=== PATIENT | female | born 2000 | race Caucasian/White ===

== ENCOUNTER 2020-09-28 01:14 | Emergency (ER) | payer BC, OTHER ==
[~2020-09-28] VITALS: Ht 160 cm; Wt 80.5 kg
--- NOTE | 2020-09-28 01:59 | NUR ---
PT HERE FOR N/V AND BODY ACHES X 2 DAYS. PT HAD SIMILAR SYMPTOMS 1 YEAR AGO PRIOR TO GALL BLADDER SURGERY
--- NOTE | 2020-09-28 02:16 | NUR ---
PT WAITING TO SEE MD IN NAD AT THIS TIME
[2020-09-28] MEDS ORDERED: ONDANSETRON 2MG/ML, 2ML ONE (02:44)
[2020-09-28] MEDS ORDERED: ONDANSETRON 2MG/ML, 2ML IVPush ONE (03:00)
[2020-09-28] MEDS ORDERED: SODIUM CHLORIDE 0.9% 1,000ML IVBOLUS ONE (03:00)
[2020-09-28 03:04] LABS: BASOPHILS % (AUTO) 1 % (0-1); EOSINOPHILS % (AUTO) 0 % (1-7); LYMPHOCYTES % (AUTO) 11 % (22-44); MEAN CORPUSCULAR HEMOGLOBIN 24.9 pg (27.0-34.8); MEAN CORPUSCULAR HGB CONC 32.5 g/dL (32.4-35.8); MEAN PLATELET VOLUME 8.1 fL (7.4-10.4); MONOCYTES % (AUTO) 10 % (2-9); NEUTROPHILS % (AUTO) 78 % (42-75); PLATELET COUNT 224 x10^3/uL (130-400); RED BLOOD COUNT 4.84 x10^6/uL (3.82-5.3); RED CELL DISTRIBUTION WIDTH 15.6 % (9.6-15.2)
[2020-09-28 03:07] LABS: MD NO
[2020-09-28 03:12] LABS: ALANINE AMINOTRANSFERASE 14 U/L (12-78); ALBUMIN 3.6 g/dL (3.4-5.0); ANION GAP 9 mmol/L (5-15); CALCIUM 8.7 mg/dL (8.5-10.1); CHLORIDE 110 mmol/L (98-107)
[2020-09-28 03:30] LABS: ALKALINE PHOSPHATASE 58 U/L (45-117); BILIRUBIN,TOTAL 0.3 mg/dL (0.2-1.0); TOTAL PROTEIN 7.3 g/dL (6.4-8.2)
--- NOTE | 2020-09-28 04:03 | NUR ---
IN TO SEE PT, NOTIFIED PATIENT THAT SH IS , THEN PT TO IMMANUEL WICK
[2020-09-28] MEDS ORDERED: ACETAMINOPHEN 325 MG TABLET ONE (05:23)
[2020-09-28] MEDS ORDERED: ACETAMINOPHEN 325 MG TABLET PO ONE (05:30)
[2020-09-28 05:36] VITALS: BP 122/74
--- NOTE | 2020-09-28 05:37 | NUR ---
Patient/Caregiver given discharge instructions and they have confirmed that they understand the instructions. Patient ambulatory with steady gait.
== END 2020-09-28 05:39 | disposition home or self-care (01) ==
LOC: ED 03:18
DX: O02.1 Missed abortion (principal); O26.891 Other specified pregnancy related conditions, first trimester; R11.2 Nausea with vomiting, unspecified; Z90.49 Acquired absence of other specified parts of digestive tract; Z87.891 Personal history of nicotine dependence; Z3A.08 8 weeks gestation of pregnancy
CPT/HCPCS: 36415; 76801; 80053; 83690; 84702; 85025; 96374; 99284; J2405; J7030; 84703

== ENCOUNTER 2020-09-29 09:42 | Emergency (ER) | payer OTHER ==
[~2020-09-29] VITALS: Ht 162.6 cm; Wt 80.2 kg
[2020-09-29] MEDS ORDERED: HYDROmorphone 1 MG/ML, 1ML INJ IVPush PRN (10:30)
[2020-09-29] MEDS ORDERED: SODIUM CHLORIDE 0.9% 1,000ML IVBOLUS ONE (10:30)
[2020-09-29] MEDS ORDERED: ONDANSETRON 2MG/ML, 2ML IVPush ONE (10:30)
[2020-09-29] MEDS ORDERED: SODIUM CHLORIDE FLUSH 10ML SYR IVF ONE (10:30)
[2020-09-29] MEDS ORDERED: ONDANSETRON 2MG/ML, 2ML ONE (10:58)
[2020-09-29] MEDS ORDERED: HYDROmorphone 1 MG/ML, 1ML INJ ONE (10:58)
--- NOTE | 2020-09-29 11:08 | NUR ---
PT C/O LOWER CHEST AND ABD PAIN ACCOMPANIED BY N/V. PT WAS DX WITH A MISCARRIAGE YESTERDAY. PT STATES THE PAIN IS STRONG. PT DENIES ANY VAGINAL BLEEDING. PER PT, YESTERDAY SHE WAS DIAGNOSED BEING 8 WEEKS PREGANANT, BUT NO HEART TONES DETECTED.
[2020-09-29 11:27] LABS: BASOPHILS % (AUTO) 1 % (0-1); EOSINOPHILS % (AUTO) 0 % (1-7); LYMPHOCYTES % (AUTO) 18 % (22-44); MEAN CORPUSCULAR HGB CONC 32.8 g/dL (32.4-35.8); MEAN PLATELET VOLUME 8.8 fL (7.4-10.4); MONOCYTES % (AUTO) 8 % (2-9); NEUTROPHILS % (AUTO) 73 % (42-75); PLATELET COUNT 229 x10^3/uL (130-400); RED BLOOD COUNT 5.26 x10^6/uL (3.82-5.3); RED CELL DISTRIBUTION WIDTH 16.1 % (9.6-15.2)
[2020-09-29 11:31] LABS: MD NO
[2020-09-29 11:41] LABS: ANION GAP 4 mmol/L (5-15); CALCIUM 8.8 mg/dL (8.5-10.1); CHLORIDE 111 mmol/L (98-107)
--- NOTE | 2020-09-29 11:41 | NUR ---
PT OFF THE FLOOR TO ULTRASOUND
[2020-09-29 11:58] LABS: CREATININE 0.62 mg/dL (0.55-1.02)
--- NOTE | 2020-09-29 12:00 | NUR ---
Report recieved from Court MORALES. pt back from imaging.
[2020-09-29] MEDS ORDERED: MAALOX/HYOSCYAMINE/LIDOCAINE 45 ML BTL ONE (12:22)
--- NOTE | 2020-09-29 12:31 | NUR ---
JUAN CARLOS OCAMPO AT BEDSIDE FOR EVALUAITON
[2020-09-29 12:46] VITALS: BP 110/64
[2020-09-29 12:59] LABS: MICROSCOPIC INDICATED
[2020-09-29] MEDS ORDERED: MAALOX/HYOSCYAMINE/LIDOCAINE 45 ML BTL PO ONE (13:00)
--- NOTE | 2020-09-29 13:40 | NUR ---
PT STATES UNABLE TO FINISH GI COCTAIL MEDICATION D/T NAUSEA. ERMD AWARE
--- NOTE | 2020-09-29 14:37 | NUR ---
JUAN CARLOS OCAMPO AT BEDSIDE TO DISCUSS POC.
== END 2020-09-29 14:59 | disposition home or self-care (01) ==
LOC: ED 10:24
DX: O20.0 Threatened abortion (principal); R10.2 Pelvic and perineal pain; R11.2 Nausea with vomiting, unspecified; R51.9 Headache, unspecified; Z90.49 Acquired absence of other specified parts of digestive tract; Z3A.01 Less than 8 weeks gestation of pregnancy
CPT/HCPCS: 36415; 76801; 80048; 81001; 82040; 83690; 84702; 85025; 87086; 96361; 96374; 96375; 99284; J1170; J2405; J7030

== ENCOUNTER 2020-10-02 05:06 | Emergency (ER) | payer BC, OTHER ==
[~2020-10-02] VITALS: Ht 162.6 cm; Wt 79.0 kg
[2020-10-02 05:09] VITALS: BP 111/69
[2020-10-02] MEDS ORDERED: SODIUM CHLORIDE 0.9% 1,000ML IVBOLUS ONE (05:30)
[2020-10-02] MEDS ORDERED: ONDANSETRON 2MG/ML, 2ML IVPush ONE (05:30)
[2020-10-02] MEDS ORDERED: SODIUM CHLORIDE FLUSH 10ML SYR IVF ONE (05:30)
[2020-10-02] MEDS ORDERED: ONDANSETRON 2MG/ML, 2ML ONE (05:36)
--- NOTE | 2020-10-02 05:46 | NUR ---
cc of abd, back, and leg pain 3/10 from the last 3 days that has worsened. pt was seen here 2 other times and told she is having a miscarriage.
[2020-10-02 05:47] LABS: BASOPHILS % (AUTO) 1 % (0-1); EOSINOPHILS % (AUTO) 0 % (1-7); LYMPHOCYTES % (AUTO) 22 % (22-44); MEAN CORPUSCULAR HEMOGLOBIN 24.5 pg (27.0-34.8); MEAN CORPUSCULAR HGB CONC 32.2 g/dL (32.4-35.8); MEAN PLATELET VOLUME 8.2 fL (7.4-10.4); MONOCYTES % (AUTO) 8 % (2-9); NEUTROPHILS % (AUTO) 69 % (42-75); PLATELET COUNT 196 x10^3/uL (130-400); RED BLOOD COUNT 5.15 x10^6/uL (3.82-5.3); RED CELL DISTRIBUTION WIDTH 15.9 % (9.6-15.2)
[2020-10-02 05:53] LABS: MD NO
[2020-10-02 05:54] LABS: ALBUMIN 3.7 g/dL (3.4-5.0); ANION GAP 7 mmol/L (5-15); CALCIUM 8.9 mg/dL (8.5-10.1); CHLORIDE 112 mmol/L (98-107); CREATININE 0.66 mg/dL (0.55-1.02)
[2020-10-02] MEDS ORDERED: ACETAMINOPHEN 500 MG TABLET ONE (06:33)
--- NOTE | 2020-10-02 06:40 | NUR ---
pt requesting something for pain, erp aware and ordered tylenol. pt states tylenol does not work for her and refused medication. pt states she got prescription for norco yesterday and would like that. erp aware, no new orders at this time and will re-evaluate after ultrasound. pt aware of poc.
--- NOTE | 2020-10-02 06:45 | NUR ---
pt to ultrasound
--- NOTE | 2020-10-02 06:55 | NUR ---
report given to zandra lutz
[2020-10-02] MEDS ORDERED: ACETAMINOPHEN 500 MG TABLET PO ONE (07:00)
== END 2020-10-02 08:11 | disposition home or self-care (01) ==
LOC: ED 05:51
DX: O26.891 Other specified pregnancy related conditions, first trimester (principal); O99.331 Smoking (tobacco) complicating pregnancy, first trimester; R10.2 Pelvic and perineal pain; R11.2 Nausea with vomiting, unspecified; M54.5 Low back pain; F17.200 Nicotine dependence, unspecified, uncomplicated; Z3A.01 Less than 8 weeks gestation of pregnancy
CPT/HCPCS: 36415; 76801; 80048; 82040; 84702; 85025; 86901; 96361; 96374; 99284; J2405; J7030

== ENCOUNTER 2020-10-05 19:08 | Emergency (ER) | payer BC ==
[~2020-10-05] VITALS: Ht 162.6 cm; Wt 78.1 kg
--- NOTE | 2020-10-05 19:26 | NUR ---
PT HERE FOR C/O N/V X1 WEEK AND UNABLE TO EAT FOR THE LAST 5 DAYS. PT REPORTS SHE IS ABOUT 5 WEEKS . HX DAILY MARIJUANA USE, STATES SHE HAS NOT SMOKED X1 WEEK.
[2020-10-05] MEDS ORDERED: PROMETHAZINE 25 MG/ML, 1ML IM ONE (20:00)
[2020-10-05] MEDS ORDERED: PROMETHAZINE 25 MG/ML, 1ML ONE (20:05)
--- NOTE | 2020-10-05 20:14 | NUR ---
MEDICATED PER MAR. URINE SAMPLE COLLECTED. ALL NEEDS MET AT THIS TIME.
[2020-10-05 20:28] LABS: BASOPHILS % (AUTO) 0 % (0-1); EOSINOPHILS % (AUTO) 0 % (1-7); LYMPHOCYTES % (AUTO) 24 % (22-44); MD NO; MEAN CORPUSCULAR HEMOGLOBIN 24.9 pg (27.0-34.8); MEAN CORPUSCULAR HGB CONC 33.2 g/dL (32.4-35.8); MEAN PLATELET VOLUME 8.7 fL (7.4-10.4); MONOCYTES % (AUTO) 8 % (2-9); NEUTROPHILS % (AUTO) 68 % (42-75); PLATELET COUNT 217 x10^3/uL (130-400); RED BLOOD COUNT 4.94 x10^6/uL (3.82-5.3); RED CELL DISTRIBUTION WIDTH 15.5 % (9.6-15.2)
[2020-10-05 20:32] LABS: MICROSCOPIC INDICATED
[2020-10-05 20:41] LABS: ALANINE AMINOTRANSFERASE 14 U/L (12-78); ALBUMIN 3.7 g/dL (3.4-5.0); ANION GAP 8 mmol/L (5-15); CALCIUM 8.7 mg/dL (8.5-10.1); CHLORIDE 110 mmol/L (98-107); CREATININE 0.67 mg/dL (0.55-1.02)
[2020-10-05 21:02] LABS: ALKALINE PHOSPHATASE 53 U/L (45-117); BILIRUBIN,TOTAL 0.6 mg/dL (0.2-1.0); TOTAL PROTEIN 7.1 g/dL (6.4-8.2)
--- NOTE | 2020-10-05 22:10 | NUR ---
US AT BEDSIDE.
--- NOTE | 2020-10-05 23:05 | NUR ---
REPORT RECIEVED FROM ANDREW BRENNAN
[2020-10-05] MEDS ORDERED: METOCLOPRAMIDE 5 MG/ML, 2ML ONE (23:28)
[2020-10-05] MEDS ORDERED: METOCLOPRAMIDE 5 MG/ML, 2ML IVPush ONE (23:30)
[2020-10-05] MEDS ORDERED: SODIUM CHLORIDE 0.9% 1,000ML IVBOLUS ONE (23:30)
--- NOTE | 2020-10-06 00:57 | NUR ---
PT GIVEN CRACKERS, WATER, AND SPRITE. PT ABLE TO KEEP IT DOWN AND STATES NO NAUSEA AT THIS TIME
[2020-10-06 01:40] VITALS: BP 116/52
[2020-10-06] MEDS ORDERED: ONDA4TAB7 PO (08:19)
== END 2020-10-06 01:55 | disposition home or self-care (01) ==
LOC: ED 19:23
DX: O21.0 Mild hyperemesis gravidarum (principal); F17.210 Nicotine dependence, cigarettes, uncomplicated; Z90.49 Acquired absence of other specified parts of digestive tract; Z3A.01 Less than 8 weeks gestation of pregnancy
CPT/HCPCS: 36415; 76801; 80053; 81001; 83690; 84702; 85025; 87086; 96372; 96374; 99285; J2550; J2765; J7030

== ENCOUNTER 2020-10-06 06:05 | Inpatient (IN) | payer BC ==
[~2020-10-06] VITALS: Ht 160 cm; Wt 82.1 kg
--- NOTE | 2020-10-06 06:55 | NUR ---
REPORT FROM [place], ASSUME CARE OF PT AT THIS TIME.
[2020-10-06] MEDS ORDERED: ONDANSETRON ODT 4 MG ONE (06:58)
[2020-10-06] MEDS ORDERED: ONDANSETRON ODT 4 MG PO ONE (07:00)
--- NOTE | 2020-10-06 07:02 | NUR ---
WHEN ENTERING ROOM, PT SLEEPING SOUNDLY. PT AWOKE AND PROVIDED ZOFRAN ODT PER ERP ORDER. PT INITIALLY RESISTANT TO TAKING ZOFRAN STATING "I WILL THROW UP", "I NEED WATER", "I HAVE NOTHING IN MY STOMACH", ETC. MEDICATION TEACHING COMPLETED WITH PT STATING "I KNOW, I'VE BEEN TAKING IT FOR DAYS". THEN THIS RN IS LEAVING ROOM, PT STATES "I'LL TAKE IT BUT YOU NEED TO GIVE ME WATER". PT GIVEN ZOFRAN, PLACED UNDER THE TONGUE. SMALL GLASS OF WATER PROVIDED FOR SIPS TO RINSE AFTERTASTE. LAB IN TO DRAW.
--- NOTE | 2020-10-06 07:03 | NUR ---
REPORT GIVEN TO MONICA MORALES
[2020-10-06 07:34] LABS: ALBUMIN 3.4 g/dL (3.4-5.0); ANION GAP 5 mmol/L (5-15); CALCIUM 8.4 mg/dL (8.5-10.1); CHLORIDE 114 mmol/L (98-107); CREATININE 0.58 mg/dL (0.55-1.02)
[2020-10-06] MEDS ORDERED: SODIUM CHLORIDE 0.9% 1,000ML IVBOLUS ONE (08:00)
[2020-10-06] MEDS ORDERED: POTASSIUM CHLORIDE 40 MEQ in SODIUM CHLORIDE 0.9% 500 ML IV ONE (08:00)
--- NOTE | 2020-10-06 08:14 | NUR ---
IV PLACED, NS BOLUS AND POTASSIUM INFUSING. CALL LIGHT WITHIN REACH.
[2020-10-06] MEDS ORDERED: ONDA4TAB7 PO (08:19)
--- NOTE | 2020-10-06 08:25 | NUR ---
[facility] IN TO SEE PT
--- NOTE | 2020-10-06 09:13 | NUR ---
REPORT TO EMERITA STODDARD READY FOR TRANSPORT TO FLOOR.
[2020-10-06] MEDS ORDERED: MORPHINE SULFATE 4 MG/ML, 1ML IVPush PRN (10:00)
[2020-10-06 10:02] VITALS: BP 97/59
[2020-10-06] MEDS ORDERED: POTASSIUM CHLORIDE 40 MEQ in SODIUM CHLORIDE 0.9% 1,000 ML IV SCH (10:30)
[2020-10-06] MEDS: ENOXAPARIN 40 MG/0.4 ML SQ SCH (11:00)
[2020-10-06] MEDS: CEFTRIAXONE PMX 1GM/50ML 50 ML IV SCH (11:06)
[2020-10-06] MEDS: METOCLOPRAMIDE 5 MG/ML, 2ML IVPush SCH ×3 (11:15→22:30)
[2020-10-06 11:23] VITALS: BP 97/59
[2020-10-06] MEDS: THIAMINE 100 MG in SODIUM CHLORIDE 0.9% 50 ML IV SCH (11:57)
[2020-10-06] MEDS: POTASSIUM CHLORIDE 40 MEQ in SODIUM CHLORIDE 0.9% 1,000 ML IV SCH ×2 (12:40→21:22)
[2020-10-06 14:02] VITALS: BP 95/49
[2020-10-06] MEDS ORDERED: MAGNESIUM SULFATE PMX 2GM/50ML 50 ML IV ONE (18:00)
[2020-10-06 18:15] VITALS: BP 117/64
[2020-10-06] MEDS: ONDANSETRON 2MG/ML, 2ML IVPush PRN (19:31)
[2020-10-07 00:52] VITALS: BP 107/67
[2020-10-07] MEDS: METOCLOPRAMIDE 5 MG/ML, 2ML IVPush SCH ×4 (04:39→22:07)
[2020-10-07] MEDS: POTASSIUM CHLORIDE 40 MEQ in SODIUM CHLORIDE 0.9% 1,000 ML IV SCH ×2 (04:39→11:40)
[2020-10-07 06:07] LABS: BASOPHILS % (AUTO) 0 % (0-1); EOSINOPHILS % (AUTO) 0 % (1-7); LYMPHOCYTES % (AUTO) 26 % (22-44); MEAN CORPUSCULAR HEMOGLOBIN 25.1 pg (27.0-34.8); MEAN CORPUSCULAR HGB CONC 32.8 g/dL (32.4-35.8); MEAN PLATELET VOLUME 9.3 fL (7.4-10.4); MONOCYTES % (AUTO) 6 % (2-9); NEUTROPHILS % (AUTO) 68 % (42-75); PLATELET COUNT 186 x10^3/uL (130-400); RED BLOOD COUNT 4.53 x10^6/uL (3.82-5.3); RED CELL DISTRIBUTION WIDTH 15.7 % (9.6-15.2)
[2020-10-07 06:18] LABS: ALBUMIN 2.9 g/dL (3.4-5.0); ANION GAP 9 mmol/L (5-15); CALCIUM 7.9 mg/dL (8.5-10.1); CHLORIDE 114 mmol/L (98-107)
[2020-10-07 06:19] LABS: MD NO
[2020-10-07 06:22] LABS: ALANINE AMINOTRANSFERASE 10 U/L (12-78); ALKALINE PHOSPHATASE 45 U/L (45-117); BILIRUBIN,TOTAL 0.7 mg/dL (0.2-1.0); CREATININE 0.44 mg/dL (0.55-1.02); TOTAL PROTEIN 5.8 g/dL (6.4-8.2)
[2020-10-07 08:21] VITALS: BP 104/65
[2020-10-07] MEDS: THIAMINE 100 MG in SODIUM CHLORIDE 0.9% 50 ML IV SCH (10:45)
[2020-10-07] MEDS: ENOXAPARIN 40 MG/0.4 ML SQ SCH (11:00)
[2020-10-07] MEDS: CEFTRIAXONE PMX 1GM/50ML 50 ML IV SCH (11:40)
[2020-10-07 12:53] VITALS: BP 110/72
[2020-10-07] MEDS: ONDANSETRON 2MG/ML, 2ML IVPush PRN (15:24)
[2020-10-07] MEDS: POTASSIUM ACID PHOSPHATE 500 MG TABLET.SOL PO SCH ×2 (15:24→22:07)
[2020-10-07 19:15] VITALS: BP 127/83
[2020-10-07] MEDS ORDERED: ACETAMINOPHEN 325 MG TABLET PO PRN ×2 (20:30→21:30)
[2020-10-08 03:50] VITALS: BP 107/68
[2020-10-08] MEDS: METOCLOPRAMIDE 5 MG/ML, 2ML IVPush SCH ×2 (04:08→11:40)
[2020-10-08] MEDS: POTASSIUM ACID PHOSPHATE 500 MG TABLET.SOL PO SCH ×2 (04:08→08:18)
[2020-10-08 05:59] LABS: BASOPHILS % (AUTO) 1 % (0-1); EOSINOPHILS % (AUTO) 0 % (1-7); LYMPHOCYTES % (AUTO) 17 % (22-44); MEAN CORPUSCULAR HEMOGLOBIN 24.9 pg (27.0-34.8); MEAN CORPUSCULAR HGB CONC 32.5 g/dL (32.4-35.8); MEAN PLATELET VOLUME 8.8 fL (7.4-10.4); MONOCYTES % (AUTO) 6 % (2-9); NEUTROPHILS % (AUTO) 76 % (42-75); PLATELET COUNT 224 x10^3/uL (130-400); RED BLOOD COUNT 5.18 x10^6/uL (3.82-5.3); RED CELL DISTRIBUTION WIDTH 15.5 % (9.6-15.2)
[2020-10-08 06:01] LABS: MD NO
[2020-10-08 06:08] LABS: ALBUMIN 3.4 g/dL (3.4-5.0); ANION GAP 9 mmol/L (5-15); CALCIUM 8.9 mg/dL (8.5-10.1); CHLORIDE 111 mmol/L (98-107)
[2020-10-08 06:11] LABS: ALANINE AMINOTRANSFERASE 16 U/L (12-78); ALKALINE PHOSPHATASE 52 U/L (45-117); BILIRUBIN,TOTAL 0.6 mg/dL (0.2-1.0); CREATININE 0.54 mg/dL (0.55-1.02); TOTAL PROTEIN 6.7 g/dL (6.4-8.2)
[2020-10-08] MEDS: ONDANSETRON 2MG/ML, 2ML IVPush PRN (06:34)
[2020-10-08 07:15] VITALS: BP 101/67
[2020-10-08] MEDS: CEFTRIAXONE PMX 1GM/50ML 50 ML IV SCH (10:54)
[2020-10-08] MEDS: ENOXAPARIN 40 MG/0.4 ML SQ SCH (11:00)
[2020-10-08] MEDS: THIAMINE 100 MG in SODIUM CHLORIDE 0.9% 50 ML IV SCH (11:40)
[2020-10-08 15:07] VITALS: BP 111/63
== END 2020-10-08 15:40 | disposition home or self-care (01) | DRG 832 ==
LOC: ED 07:52 → SUATTDRO 08:21 → EDIP 08:52 → 3N 09:25 → DCLOUNGE 10-08 15:32
PROVIDERS: ADMIT Family Medicine; ATTEND Family Medicine
DX: O21.1 Hyperemesis gravidarum with metabolic disturbance (principal); K56.7 Ileus, unspecified; O99.321 Drug use complicating pregnancy, first trimester; E83.42 Hypomagnesemia; E83.51 Hypocalcemia; E86.0 Dehydration; E88.09 Other disorders of plasma-protein metabolism, not elsewhere classified; O99.281 Endocrine, nutritional and metabolic diseases complicating pregnancy, first trimester; F12.90 Cannabis use, unspecified, uncomplicated; F17.210 Nicotine dependence, cigarettes, uncomplicated; O99.331 Smoking (tobacco) complicating pregnancy, first trimester; O26.91 Pregnancy related conditions, unspecified, first trimester; Z90.49 Acquired absence of other specified parts of digestive tract; Z3A.01 Less than 8 weeks gestation of pregnancy
CPT/HCPCS: 36415; 80048; 80053; 82040; 83690; 83735; 84100; 84132; 85025; G0378; J0696; J2405; J3411; J3480; Q0162; J2270; J2765; J3475; J7030; J7040

== ENCOUNTER 2020-12-27 07:27 | Emergency (ER) | payer BC ==
[~2020-12-27] VITALS: Ht 162.6 cm; Wt 74.4 kg
[~2020-12-27 07:27] MED LIST: ONDA4TAB7 PO
--- NOTE | 2020-12-27 07:52 | NUR ---
first contact with pt. pt c/o all quadrants abd pain with n/v since 10 pm yesterday. pt denies any other symptoms. lbm 12/26. last meal 12/26 8pm per pt. pt's aox4. resps even and unlabored. pt's mother at bedside. pt's aox4. bp/spo2 monitors in place. urine cup in room. pt stated "i can't pee now."
[2020-12-27 08:28] LABS: BASOPHILS % (AUTO) 0 % (0-1); EOSINOPHILS % (AUTO) 0 % (1-7); LYMPHOCYTES % (AUTO) 7 % (22-44); MD NO; MEAN CORPUSCULAR HGB CONC 31.8 g/dL (32.4-35.8); MEAN PLATELET VOLUME 8.4 fL (7.4-10.4); MONOCYTES % (AUTO) 4 % (2-9); NEUTROPHILS % (AUTO) 88 % (42-75); PLATELET COUNT 298 x10^3/uL (130-400); RED BLOOD COUNT 4.67 x10^6/uL (3.82-5.3); RED CELL DISTRIBUTION WIDTH 14.9 % (9.6-15.2)
[2020-12-27] MEDS ORDERED: ONDANSETRON 2MG/ML, 2ML IVPush ONE (08:30)
[2020-12-27] MEDS ORDERED: SODIUM CHLORIDE 0.9% 1,000ML IVBOLUS ONE (08:30)
[2020-12-27] MEDS ORDERED: ONDANSETRON 2MG/ML, 2ML ONE (08:34)
[2020-12-27 08:39] LABS: ALANINE AMINOTRANSFERASE 11 U/L (12-78); ALBUMIN 3.9 g/dL (3.4-5.0); ANION GAP 7 mmol/L (5-15); CALCIUM 8.9 mg/dL (8.5-10.1); CHLORIDE 112 mmol/L (98-107)
[2020-12-27 08:42] LABS: ALKALINE PHOSPHATASE 65 U/L (45-117); BILIRUBIN,TOTAL 0.4 mg/dL (0.2-1.0); TOTAL PROTEIN 7.8 g/dL (6.4-8.2)
[2020-12-27 08:45] LABS: HCG UR SG 1.017 (1.003-1.030); MICROSCOPIC NOT IND
--- NOTE | 2020-12-27 08:51 | NUR ---
pt provided urine sample at this time. ua sent.
--- NOTE | 2020-12-27 09:29 | NUR ---
pt resting in [facility]. pt's aox4. resps even and unlabored. ns still infusing at this time.
[2020-12-27 10:09] VITALS: BP 93/54
--- NOTE | 2020-12-27 10:10 | NUR ---
Patient given discharge instructions and they have confirmed that they understand the instructions. Patient ambulatory with steady gait.
== END 2020-12-27 10:12 | disposition home or self-care (01) ==
LOC: ED 10:00
DX: R11.2 Nausea with vomiting, unspecified (principal); R10.11 Right upper quadrant pain
CPT/HCPCS: 36415; 80053; 81003; 81025; 83690; 85025; 96361; 96374; 99285; J2405; J7030

== ENCOUNTER 2020-12-28 03:04 | Emergency (ER) | payer BC ==
[~2020-12-28] VITALS: Ht 160 cm; Wt 76.6 kg
--- NOTE | 2020-12-28 03:20 | NUR ---
ERP AT BEDSIDE
[2020-12-28] MEDS ORDERED: PROCHLORPERAZINE 5 MG/ML, 2ML ONE (03:27)
[2020-12-28] MEDS ORDERED: DIPHENHYDRAMINE 50 MG/ML, 1ML ONE (03:27)
[2020-12-28] MEDS ORDERED: PROCHLORPERAZINE 5 MG/ML, 2ML IVPush ONE (03:30)
[2020-12-28] MEDS ORDERED: SODIUM CHLORIDE 0.9% 1,000ML IVBOLUS ONE (03:30)
[2020-12-28] MEDS ORDERED: DIPHENHYDRAMINE 50 MG/ML, 1ML IVPush ONE (03:30)
[2020-12-28 03:54] LABS: BASOPHILS % (AUTO) 0 % (0-1); EOSINOPHILS % (AUTO) 0 % (1-7); LYMPHOCYTES % (AUTO) 13 % (22-44); MEAN CORPUSCULAR HGB CONC 31.9 g/dL (32.4-35.8); MEAN PLATELET VOLUME 8.7 fL (7.4-10.4); MONOCYTES % (AUTO) 4 % (2-9); NEUTROPHILS % (AUTO) 82 % (42-75); PLATELET COUNT 282 x10^3/uL (130-400); RED BLOOD COUNT 4.57 x10^6/uL (3.82-5.3); RED CELL DISTRIBUTION WIDTH 14.8 % (9.6-15.2)
[2020-12-28 04:03] LABS: ALANINE AMINOTRANSFERASE 13 U/L (12-78); ALBUMIN 3.8 g/dL (3.4-5.0); ANION GAP 7 mmol/L (5-15); CALCIUM 8.9 mg/dL (8.5-10.1); CHLORIDE 113 mmol/L (98-107); CREATININE 0.64 mg/dL (0.55-1.02)
[2020-12-28 04:04] LABS: MD NO
--- NOTE | 2020-12-28 04:05 | NUR ---
PT SITTING UPRIGHT ON GURNEY RESTING COMFORTABLY WITH EYES CLOSED, JOVANNY HAAS. PT STATES " I DONT FEEL ANY BETTER AFTER THOSE MEDICATIONS, I STILL FEEL TERRIBLE". PT DENIES ANY ADDITIONAL NEEDS AT THIS TIME. ERP AWARE
[2020-12-28 04:07] LABS: ALKALINE PHOSPHATASE 62 U/L (45-117); BILIRUBIN,TOTAL 0.4 mg/dL (0.2-1.0); TOTAL PROTEIN 7.5 g/dL (6.4-8.2)
[2020-12-28 04:57] VITALS: BP 115/70
--- NOTE | 2020-12-28 05:05 | NUR ---
Patient given discharge instructions and they have confirmed that they understand the instructions. Patient ambulatory with steady gait.
== END 2020-12-28 05:06 | disposition home or self-care (01) ==
LOC: ED 03:31
DX: F10.10 Alcohol abuse, uncomplicated (principal); F12.10 Cannabis abuse, uncomplicated; R10.10 Upper abdominal pain, unspecified; R11.2 Nausea with vomiting, unspecified; Y90.0 Blood alcohol level of less than 20 mg/100 ml
CPT/HCPCS: 36415; 80053; 83690; 84703; 85025; 96361; 96374; 96375; 99284; J0780; J1200; J7030

== ENCOUNTER 2021-04-13 23:17 | Emergency (ER) | payer BC ==
[~2021-04-13] VITALS: Ht 162.6 cm; Wt 69.1 kg
[2021-04-13] MEDS ORDERED: FAMOTIDINE 20 MG/2 ML IVPush ONE (23:30)
[2021-04-13] MEDS ORDERED: SODIUM CHLORIDE FLUSH 10ML SYR IVF ONE (23:30)
[2021-04-13] MEDS ORDERED: ONDANSETRON 2MG/ML, 2ML IVPush ONE (23:30)
[2021-04-13] MEDS ORDERED: PROMETHAZINE 25 MG/ML, 1ML IM ONE (23:30)
[2021-04-13] MEDS ORDERED: MORPHINE SULFATE 4 MG/ML, 1ML IVPush PRN (23:30)
[2021-04-13] MEDS ORDERED: ONDANSETRON 2MG/ML, 2ML ONE (23:40)
[2021-04-13] MEDS ORDERED: FAMOTIDINE 20 MG/2 ML ONE (23:40)
[2021-04-13] MEDS ORDERED: PROMETHAZINE 25 MG/ML, 1ML ONE (23:40)
[2021-04-13] MEDS ORDERED: MAALOX/HYOSCYAMINE/LIDOCAINE 45 ML BTL ONE (23:40)
[2021-04-13 23:53] LABS: BASOPHILS % (AUTO) 0 % (0-1); EOSINOPHILS % (AUTO) 0 % (1-7); LYMPHOCYTES % (AUTO) 11 % (22-44); MEAN CORPUSCULAR HEMOGLOBIN 23.5 pg (27.0-34.8); MEAN CORPUSCULAR HGB CONC 32.1 g/dL (32.4-35.8); MEAN PLATELET VOLUME 8.8 fL (7.4-10.4); MONOCYTES % (AUTO) 6 % (2-9); NEUTROPHILS % (AUTO) 82 % (42-75); PLATELET COUNT 251 x10^3/uL (130-400); RED BLOOD COUNT 4.84 x10^6/uL (3.82-5.3); RED CELL DISTRIBUTION WIDTH 18.9 % (9.6-15.2)
[2021-04-13 23:56] LABS: ALANINE AMINOTRANSFERASE 18 U/L (12-78); ALBUMIN 3.9 g/dL (3.4-5.0); ANION GAP 7 mmol/L (5-15); CHLORIDE 109 mmol/L (98-107); CREATININE 0.74 mg/dL (0.55-1.02)
[2021-04-14] LABS: ALKALINE PHOSPHATASE 51 U/L (45-117); BILIRUBIN,TOTAL 0.7 mg/dL (0.2-1.0); TOTAL PROTEIN 7.8 g/dL (6.4-8.2)
[2021-04-14] MEDS ORDERED: MAALOX/HYOSCYAMINE/LIDOCAINE 45 ML BTL PO ONE
[2021-04-14 00:12] VITALS: BP 121/71
--- NOTE | 2021-04-14 00:12 | NUR ---
Patient/Caregiver given discharge instructions and they have confirmed that they understand the instructions. Patient ambulatory with steady gait. NAD, all questions answered appropriately, denies additional needs at this time. No personal belongings left in room after discharge.
[2021-04-14] MEDS ORDERED: POTASSIUM CHLORIDE 20 MEQ TAB.ER.PRT ONE ×2 (00:16→00:19)
[2021-04-14] MEDS ORDERED: POTASSIUM CHLORIDE 20 MEQ TAB.ER.PRT PO ONE (00:30)
== END 2021-04-14 00:28 | disposition home or self-care (01) ==
LOC: ED 23:47
DX: K29.00 Acute gastritis without bleeding (principal); Z90.49 Acquired absence of other specified parts of digestive tract; F17.200 Nicotine dependence, unspecified, uncomplicated
CPT/HCPCS: 36415; 80053; 83690; 84703; 85025; 96372; 96374; 96375; 99284; J2405; J2550